=== PATIENT | male | born 1995 | race Two or more races ===

== ENCOUNTER 2019-03-30 09:58 | Emergency (ER) | payer SELFPAY ==
[~2019-03-30] VITALS: Ht 180.3 cm; Wt 88.6 kg
[2019-03-30 10:31] VITALS: BP 130/83
[2019-03-30] MEDS ORDERED: IBUPROFEN 600 MG TABLET PO ONE (11:30)
== END 2019-03-30 12:15 | disposition home or self-care (01) ==
LOC: EMS 10:04
DX: R07.89 Other chest pain (principal); F17.290 Nicotine dependence, other tobacco product, uncomplicated
CPT/HCPCS: 99406